=== PATIENT | female | born 1965 | race Caucasian/White ===

== ENCOUNTER → 2017-02-04 | Outpatient (CLI) | payer BC | END | disposition home or self-care (01) | LOC: MAMMO 15:25 | DX: Z12.31 Encounter for screening mammogram for malignant neoplasm of breast (principal) ==

== ENCOUNTER → 2017-02-10 | Outpatient (CLI) | payer BC ==
[~2017-02-10] MED LIST: LORADAMED10 MG PO
[2017-02-10 09:52] LABS: BASO # 0.1 10*3/uL (0.0-0.1); BASO % 0.6 % (0.0-1.0); EOS # 0.4 10*3/uL (0.0-0.4); EOS % 4.9 % (1.0-4.0); HEMATOCRIT 37.3 % (37.0-47.0); HEMOGLOBIN 12.2 g/dl (12.0-16.0); LYMPH # 1.5 10*3/uL (1.3-4.4); LYMPH % 18.2 % (27.0-41.0); MEAN CELL VOLUME 85.4 fl (81.0-99.0); MEAN CORPUSCULAR HGB 27.9 pg (27.0-31.0); MEAN CORPUSCULAR HGB CONC 32.7 g/dl (33.0-37.0); MEAN PLATELET VOLUME 9.5 fl (9.6-12.3); MONO # 0.8 10*3/uL (0.1-1.0); MONO % 9.2 % (3.0-9.0); NEUT # 5.6 10*3/uL (2.3-7.9); NEUT % 66.6 % (47.0-73.0); PLATELET COUNT AUTOMATED 314 10*3/uL (130-400); RED BLOOD COUNT 4.37 10*6/uL (4.10-5.10); RED CELL DISTRI WIDTH 14.2 % (0-14.5); WHITE BLOOD COUNT 8.4 10*3/uL (4.8-10.8)
== END | disposition home or self-care (01) ==
LOC: LAB 09:20
PROVIDERS: Obstetrics & Gynecology
DX: N92.0 Excessive and frequent menstruation with regular cycle (principal)

== ENCOUNTER → 2017-02-17 | Day surgery (SDC) | payer BC ==
[2017-02-10 08:53] VITALS: BP 128/72
[~2017-02-17] VITALS: Ht 165.1 cm; Wt 68.0 kg
--- NOTE | ~2017-02-17 | WRIGHTHP ---
[place], [place] PATIENT HISTORY AND PHYSICAL EXAM NAME: DHAVAL MARTINEZ [facility] #: [id number] UNIT #: [id number] ROOM: DOCTOR: ADDIE DAVILA MD BIRTHDATE: [birth year] DOS: DATE OF SURGERY: 02/17/2017 HISTORY OF PRESENT ILLNESS: This is a 52-year-old white female who was seen on 01/22/2017 for her annual exam. The year before the annual, we had discussed NovaSure as the patient has noted over the past 2+ years that her menses are now lasting 7+ days, 4 of which necessitated 2 pads and a tampon at a time and changed multiple occasions per day. She has had no menopausal symptoms and her menses are still regular. Her Pap was negative in 2015. We reviewed the risks and benefits, indications, potential complications, and alternatives of hysteroscopy, D and C, and NovaSure, understanding was stated and consent was signed. The patient did not want any preoperative evaluation in the office, but did agree to the D and C in conjunction with the NovaSure. PAST MEDICAL HISTORY: Reveals 6 pregnancies, 4 deliveries, 3 of which were vaginal and 1 was by with 2 miscarriages. She is status post tubal ligation. SOCIAL HISTORY: She had been a smoker, but has discontinued smoking 5-10 years ago. She does not drink. ALLERGIES: She has no known allergies. MEDICATIONS: She takes loratadine 1 tablet daily for allergies p.r.n. and Flonase 1 spray each nostril p.r.n. for allergies. FAMILY HISTORY: Reveals her father from heart disease. Paternal grandfather, maternal grandmother, maternal grandfather and paternal grandmother all . She notes that several aunts on her mother's side had had breast cancer. REVIEW OF SYSTEMS: Revealed mammograms have been negative as have Pap smears. PHYSICAL EXAMINATION: GENERAL: Reveals a pleasant white female. She is 5 feet 5 inches, 150 pounds, BMI is 25. She is in no apparent distress. VITAL SIGNS: Her blood pressure is 102/58. Her oxygen saturation is 100%. She notes no history of sleep apnea or symptoms. HEENT: Grossly intact. NECK: Grossly intact. LUNGS: Grossly intact. CARDIAC: Grossly intact. BREASTS: Grossly intact. ABDOMEN: Grossly intact. EXTREMITIES: Grossly intact. NEUROLOGIC: Grossly intact. GENITOURINARY: External genitalia, vagina, and cervix normal. Uterus anteverted, anteflexed, overall normal in size, configuration, nontender, mobile. Adnexa negative. RECTAL: Negative. Stool heme test negative. [place], [place] PATIENT HISTORY AND PHYSICAL EXAM NAME: DHAVAL MARTINEZ UNIT #: [id number] ROOM: DOCTOR: ADDIE DAVILA MD BIRTHDATE: [birth year] ASSESSMENT AND PLAN: The patient with worsening hypermenorrhea, although with regular cycles, who does desire more definitive therapy and to that end on 02/17/2017, the patient will undergo hysteroscopy, dilation and curettage and NovaSure endometrial ablation. ADDIE DAVILA MD CM:HISPHYS:PATIENT HISTORY AND PHYSICAL EXAMINATION [id number] ADDIE DAVILA MD 02/13/17 0535 interface
--- NOTE | ~2017-02-17 | O ---
[place], [place] OPERATIVE NOTE NAME: DHAVAL MARTINEZ UNIT #: [id number] ROOM: DOCTOR: ADDIE OZUNA MD BIRTHDATE: [birth year] DOS: 02/17/2017 PREOPERATIVE DIAGNOSES: Regular cycles but with worsening hypermenorrhea to almost an incapacitating state. POSTOPERATIVE DIAGNOSES: Regular cycles but with worsening hypermenorrhea to almost an incapacitating state. PROCEDURE: Hysteroscopy, D and C and NovaSure ablation. SURGEON: Addie Ozuna MD and Chandrakant Davison DO ANESTHESIA: MAC with 2% Nesacaine and paracervical block, 4 and 7 o'clock, 5 mL respectively. ESTIMATED BLOOD LOSS: Minimal. REPLACEMENTS: IV fluids and Toradol. COMPLICATIONS: There were no complications. CONDITION: The patient's condition to recovery stable. OPERATIVE SUMMARY: The patient was taken to the operating room in supine position. MAC anesthesia, lithotomy position, prepped and draped in routine manner. Straight cath of the bladder was then accomplished. Cervix was grasped with a tenaculum. The uterus sounded to about 9 cm followed by progressive dilatation of the endocervical canal. Hysteroscope was placed and examination of the fundus, the cornual region, the body of the uterus, and lower uterine segment revealed a normal exam and just some minor shaggy endometrial tissue. We performed a thorough curettage and then placed our NovaSure device and after achieving the appropriate depth and width, we proceeded with the NovaSure ablation. We then removed the device and repeated our hysteroscopy revealing excellent global ablation with no other atypicalities appreciated. All instrumentation was removed. The patient was cleaned off, taken out of lithotomy position, awakened and transferred to recovery in satisfactory condition with stable vital signs, good hemostasis, and stable sponge and instrument count. [place], [place] OPERATIVE NOTE NAME: DHAVAL MARTINEZ UNIT #: [id number] ROOM: DOCTOR: ADDIE OZUNA MD BIRTHDATE: [birth year] ADDIE OZUNA MD CM:OPRECORD:OPERATIVE NOTE [id number] ADDIE OZUNA MD 02/17/17 1208 interface
[2017-02-17 09:15] VITALS: BP 110/71
[2017-02-17 11:06] VITALS: BP 108/58
[2017-02-17 11:21] VITALS: BP 112/62
[2017-02-17 11:36] VITALS: BP 142/60
== END | disposition home or self-care (01) ==
LOC: SDC 02-10 08:45
DX: N92.0 Excessive and frequent menstruation with regular cycle (principal); N84.0 Polyp of corpus uteri; Z87.891 Personal history of nicotine dependence; Z79.899 Other long term (current) drug therapy; Z82.49 Family history of ischemic heart disease and other diseases of the circulatory system; Z80.3 Family history of malignant neoplasm of breast

== ENCOUNTER → 2018-05-18 | Outpatient (CLI) | payer BC | END | disposition home or self-care (01) | LOC: US 13:05 | DX: D25.9 Leiomyoma of uterus, unspecified (principal) ==

== ENCOUNTER 2018-07-22 01:10 | Inpatient (IN) | payer BC ==
[~2018-07-22] VITALS: Ht 165.1 cm; Wt 65.6 kg
[2018-07-22] VITALS (9 sets, daily range): BP systolic 109–138; BP diastolic 59–79
--- NOTE | 2018-07-22 17:00 | NUR ---
Time: 1699 A 53 year old FEMALE admitted to under services of TERESSA LIN DO. Pt. arrived via bed from [place]. Chief complaint: S/P HYSTERECTOMY. FREDDY HOLBROOK
--- NOTE | 2018-07-22 17:57 | NUR ---
PATIENT RECEIVED NORCO FOR CONTINUED PAIN IN THE ABDOMEN. STATES THE SCHEDULED TORADOL WAS INEFFECTIVE. RATES ABDOMINAL PAIN 7/10.
--- NOTE | 2018-07-22 17:57 | NUR ---
PATIENT RECEIVED MYLICON FOR GAS PRESSURE IN THE ABDOMEN.
--- NOTE | 2018-07-22 19:35 | NUR ---
KPAD APPLIED TO PATIENT'S ABDOMEN FOR DISCOMFORT. BLANKET LAYERED BETWEEN PATIENT AND KPAD. PATIENT GIVEN INSTRUCTIONS ON USE OF KPAD.
--- NOTE | 2018-07-22 19:57 | NUR ---
CALL DR SALDIVAR ABOUT PATIENT HAVING CONTINUED BREAKTHROUGH PAIN. ORDERED 4MG OF MORPHINE ONE TIME NOW.
--- NOTE | 2018-07-22 22:58 | NUR ---
PATIENT RECEIVED NORCO FOR CONTINUED CONTROL OF PAIN. STATES HER PAIN WAS REDUCED BY MORPHINE GIVEN, AND WE ARE WORKING TO KEEP THE PAIN TOLERABLE. PAIN LEVEL IS AT 4/10 AT THIS TIME IN THE LOWER ABDOMEN. ABDOMINAL DRESSING IS DRY, INTACT, WITH A SMALL STAIN OF WHAT APPEARS TO BE SEROSANGUINEOUS DRAINAGE. MINIMAL BROWN VAGINAL DISCHARGE. CATES IS PATENT FOR VERY CLEAR YELLOW URINE. SCDS IN PLACE, KPAD TO ABDOMEN FOR COMFORT. PATIENT DISPLAYS NO S/S OF DISTRESS. CALM, LYING IN HER BED AT THIS TIME. PATIENT WAS UP TO SIDE OF BED EARLIER TONIGHT. BOWEL SOUNDS ARE HYPOACTIVE. ENCOURAGED TO MOVE AND DEEP BREATHE AND USE INCENTIVE SPIROMETER. PATIENT WAS EDUCATED ABOUT USE OF CALL LIGHT FOR ASSISTANCE, AND ABOUT THE SIDE EFFECTS OF PAIN MEDICATIONS. CALL LIGHT IS WITHIN REACH. PATIENT EXPRESSES NO FURTHER CONCERNS AT THIS TIME.
[2018-07-23] VITALS: BP 135/82
--- NOTE | 2018-07-23 03:57 | NUR ---
PT REQUESTS NORCO FOR LOWER ABDOMINAL PAIN. PRN NORCO GIVEN. WILL MONITOR FOR EFFECTIVENESS. PT RATES PAIN A 5-6/10 WHEN SHE IS MOVING.
--- NOTE | 2018-07-23 04:50 | NUR ---
PRN NORCO EFFECTIVE.
--- NOTE | 2018-07-23 05:23 | NUR ---
DHAVAL MARTINEZ [id number] Please refer to the physician's history and physical for past medical history, comorbid conditions, and allergies. Diagnosis: POSTOPERATIVE STATE Kevin Score: 20,LOW OR NO RISK WOUND DESCRIPTIONS: Patient's dressing is intact to lower abdomen above pubic area. Scant amount of strikethrough drainage noted at time of assessment. Pt stated she will follow up with Dr. Sauceda upon discharge but she stated Dr. Sauceda hasn't given her a follow up date as of yet. Surface the patient is resting on: Isoflex SKIN PREVENTION RECOMMENDATION: 1. Pressure redistribution support surface as appropriate 2. Elevate heels 3. Remove boots/TEDS every shift and reapply 4. Head of bed 30 degrees as tolerated 5. Assess nutrition and hydration 6. Manage moisture 7. Avoid the use of containment devices while in bed 8. Use absorptive products on surfaces limit layers of linens on bed 9. Turn and reposition every 1-2 hours in bed and every 1 hour in chair as tolerated 10. Weight shifts every 15 minutes while up in chair 11. Offloading with pillows or device to keep heels elevated off bed 12. Monitor skin at least every shift 13. Inspect under medical devices twice a day
[2018-07-23 06:58] LABS: BASO % 0.1 % (0.0-1.0); EOS % 0.2 % (1.0-4.0); HEMATOCRIT 34.7 % (37.0-47.0); HEMOGLOBIN 11.2 g/dl (12.0-16.0); LYMPH # 1.5 10*3/uL (1.3-4.4); LYMPH % 14.6 % (27.0-41.0); MEAN CELL VOLUME 87.4 fl (81.0-99.0); MEAN CORPUSCULAR HGB 28.2 pg (27.0-31.0); MEAN CORPUSCULAR HGB CONC 32.3 g/dl (33.0-37.0); MEAN PLATELET VOLUME 9.9 fl (9.6-12.3); MONO # 1.5 10*3/uL (0.1-1.0); MONO % 13.9 % (3.0-9.0); NEUT # 7.4 10*3/uL (2.3-7.9); NEUT % 70.9 % (47.0-73.0); PLATELET COUNT AUTOMATED 271 10*3/uL (130-400); RED BLOOD COUNT 3.97 10*6/uL (4.10-5.10); RED CELL DISTRI WIDTH 14.1 % (0-14.5); WHITE BLOOD COUNT 10.4 10*3/uL (4.8-10.8)
[2018-07-23 08:00] VITALS: BP 100/62
--- NOTE | 2018-07-23 08:20 | NUR ---
UP TO RECLINER WITH MINIMAL ASSIST, DANIEL FOR SURGICAL BELLY PAIN
--- NOTE | 2018-07-23 08:31 | NUR ---
DANIEL FOR ABD SURGICAL PAIN
--- NOTE | 2018-07-23 11:06 | NUR ---
Obstetrician in to talk to patient. Patient states lives at HOME with . There are BASEMENT steps in the home. Physician: EBONIE Pharmacy: [facility] [place] [facility] services: NONE Patient's level of ADLs: INDEPENDENT Patient has working utilities: YES DME: NONE Follow-up physician's appointment after d/c: WILL BE MADE BY HOSPITALIST NURSE DIRECTOR ON DISCHARGE Does patient want to access PORTAL?: NO Discharge plan PT STATES SHE LIVES AT HOME AND IS INDEPENDENT IN CARE. PT STATES HER IS OFF FOR THE WEEK TO HELP HER AT HOME. HE WILL TAKE HER HOME ON DISCHARGE. WILL CONTINUE TO FOLLOW.. ANTONELLA BISHOP
--- NOTE | 2018-07-23 11:37 | NUR ---
TORODOL FOR 4/10 SURGICAL PAIN
--- NOTE | 2018-07-23 12:00 | NUR ---
WALKING IN HALLS WITH MINIMAL ASSIST
--- NOTE | 2018-07-23 13:30 | NUR ---
TORODOL EFFECTIVE FOR SURGICAL PAIN RELIEF
--- NOTE | 2018-07-23 14:55 | NUR ---
PT HAS URINATED SEVERAL TIMES IN THE BATHROOM
--- NOTE | 2018-07-23 14:56 | NUR ---
DRESSING REMOVED BY SURGEON, LEFT OPEN TO AIR
--- NOTE | 2018-07-23 15:10 | NUR ---
NORCO FOR PAIN
[2018-07-23 16:00] VITALS: BP 121/64
--- NOTE | 2018-07-23 17:54 | NUR ---
NORCO HAVE BEEN EFFECTIVE, PT EATING, VOIDING AND AMBULATING WITHOUT DIFFICULITY
--- NOTE | 2018-07-23 18:58 | NUR ---
DANIEL FOR 4/10 ABD PAIN FROM SURGERY
--- NOTE | 2018-07-23 19:00 | NUR ---
UPON BEDSIDE REPORT, PATIENT VISITING WITH FAMILY. NO DISTRESS NOTED. NO VOICED COMPLAINTS
[2018-07-23 20:00] VITALS: BP 115/68
--- NOTE | 2018-07-23 20:08 | NUR ---
24 HR chart check completed.
--- NOTE | 2018-07-23 21:00 | NUR ---
RESTING IN BED WITH NO ACUTE DISTRESS NOTED. RESPIRATIONS EASY. LUNGS DIMINISHED, CLEAR. PULSE OX 97% RA. TRANSVERSE INCISION NOTED TO LOWER ABD/PELVIC AREA WITH STERI-STRIPS INTACT, INCISION WELL APPROXIMATED WITH DRIED BLOOD NOTED. DENIES VAGINAL BLEEDING AT PRESENT. SCDS PRESENT AT BEDSIDE BUT NOT IN USE PER PATIENT REQUEST. CALL LIGHT WITHIN REACH. NO VOICED COMPLAINTS
--- NOTE | 2018-07-23 23:25 | NUR ---
REQUESTED AND RECEIVED NORCO 2 TABS PER PRN ORDER FOR COMPLAINTS OF PAIN RATING A 4 TO INCISION SITE. CALL LIGHT WITHIN REACH. WILL MONITOR FOR EFFECTRIVENESS
[2018-07-24] VITALS: BP 124/66
--- NOTE | 2018-07-24 00:30 | NUR ---
EARLIER MEDS APPEAR EFFECTIVE. SLEEPING. RESPIRATIONS EASY. VSS. CALL LIGHT WITHIN REACH
--- NOTE | 2018-07-24 05:46 | NUR ---
REQUESTED AND RECEIVED NORCO PER PRN ORDER FOR COMPLAINTS OF INCISIONAL PAIN/PRESSURE RATING A 5. CALL LIGHT WITHIN REACH. WILL MONITOR FOR EFFECTIVENESS
--- NOTE | 2018-07-24 06:30 | NUR ---
PATIENT STILL NOT PASSING FLATUS. ENCOURAGED TO AMBULATE HALLWAY. PATIENT WALKING LAPS AROUND HALLWAY
--- NOTE | 2018-07-24 06:30 | NUR ---
DR SALDIVAR HERE TO SEE PATIENT AND DISCUSS PLAN OF CARE
[2018-07-24] MEDS ORDERED: DOK COLACE100 MG PO (06:55)
[2018-07-24] MEDS ORDERED: IBU800 M1 PO (06:55)
[2018-07-24] MEDS ORDERED: HYDROCODONE-AC1 EAC1 PO (06:55)
--- NOTE | 2018-07-24 07:00 | NUR ---
PATIENT AMBULATED 5 LAPS AROUND HALLWAY
[2018-07-24 08:00] VITALS: BP 100/66
--- NOTE | 2018-07-24 12:12 | NUR ---
Discharge instructions reviewed with patient/family. Patient receptive and verbalizes understanding. Follow-up care arranged. Written instructions given to patient/family. PATRICIA BURLESON
== END 2018-07-24 12:12 | disposition home or self-care (01) | DRG 742 ==
LOC: SDC 01:10 → 5E 07:10 → SDC 10:00 → 5E 16:54
PROVIDERS: ADMIT Obstetrics & Gynecology
PROC: 0UT90ZZ Resection of Uterus, Open Approach (ICD-10-PCS; principal; 2018-07-22)
PROC: 0UT20ZZ Resection of Bilateral Ovaries, Open Approach (ICD-10-PCS; principal; 2018-07-22)
PROC: 0UT70ZZ Resection of Bilateral Fallopian Tubes, Open Approach (ICD-10-PCS; principal; 2018-07-22)
PROC: 0UJD4ZZ Inspection of Uterus and Cervix, Percutaneous Endoscopic Approach (ICD-10-PCS; principal; 2018-07-22)
DX: D25.9 Leiomyoma of uterus, unspecified (principal); D62 Acute posthemorrhagic anemia; N93.9 Abnormal uterine and vaginal bleeding, unspecified

== ENCOUNTER → 2019-11-16 | Outpatient (CLI) | payer BC ==
[~2019-11-16] MED LIST changes: +DOK COLACE100 MG PO; +HYDROCODONE-AC1 EAC1 PO; +IBU800 M1 PO
== END | disposition home or self-care (01) ==
LOC: MAMMO 01:00
DX: Z12.31 Encounter for screening mammogram for malignant neoplasm of breast (principal)

== ENCOUNTER → 2020-04-18 | Outpatient (CLI) | payer BC | END | disposition home or self-care (01) | LOC: COVID19 15:58 | PROVIDERS: ATTEND Internal Medicine | DX: U07.1 COVID-19 (principal) ==

== ENCOUNTER → 2020-11-24 | Outpatient (CLI) | payer BC ==
[2020-11-24 09:07] LABS: BASO # 0.1 10*3/uL (0.0-0.1); BASO % 0.8 % (0.0-1.0); EOS # 0.3 10*3/uL (0.0-0.4); EOS % 4.2 % (1.0-4.0); HEMATOCRIT 43.2 % (37.0-47.0); LYMPH # 1.2 10*3/uL (1.3-4.4); LYMPH % 18.8 % (27.0-41.0); MEAN CELL VOLUME 87.6 fl (81.0-99.0); MEAN CORPUSCULAR HGB CONC 31.9 g/dl (33.0-37.0); MEAN PLATELET VOLUME 8.9 fl (9.6-12.3); MONO # 0.7 10*3/uL (0.1-1.0); MONO % 11.3 % (3.0-9.0); NEUT % 64.6 % (47.0-73.0); PLATELET COUNT AUTOMATED 322 10*3/uL (130-400); RED BLOOD COUNT 4.93 10*6/uL (4.10-5.10); RED CELL DISTRI WIDTH 13.7 % (0-14.5); WHITE BLOOD COUNT 6.2 10*3/uL (4.8-10.8)
[2020-11-24 09:39] LABS: ALBUMIN 3.8 gm/dl (3.1-4.5); BUN 14 mg/dl (7-24); CHLORIDE 107 mmol/L (98-107); CHOLESTEROL 274 mg/dL (<200); CREATININE 0.82 mg/dL (0.55-1.02); POTASSIUM 4.2 mmol/L (3.5-5.1); SGOT/AST 14 IU/L (3-35); SGPT/ALT 26 U/L (12-78); SODIUM 137 mmol/L (136-145); TRIGLYCERIDES 85 mg/dl (<150)
[2020-11-24 09:44] LABS: ALKALINE PHOSPHATASE 94 U/L (45-117); FREE T4 0.94 ng/dl (0.76-1.46); LDL CHOLESTEROL 195 mg/dL (9-159)
[2020-11-24 11:20] LABS: VITAMIN D, 25-HYDROXY 45.8 ng/mL (30-100)
== END | disposition home or self-care (01) ==
LOC: LAB 08:53
PROVIDERS: ATTEND Internal Medicine
DX: E03.9 Hypothyroidism, unspecified (principal); J92.9 Pleural plaque without asbestos; D52.9 Folate deficiency anemia, unspecified; D51.9 Vitamin B12 deficiency anemia, unspecified; R70.0 Elevated erythrocyte sedimentation rate; R79.82 Elevated C-reactive protein (CRP); R74.8 Abnormal levels of other serum enzymes; R79.89 Other specified abnormal findings of blood chemistry; R53.81 Other malaise; E55.9 Vitamin D deficiency, unspecified; Z13.0 Encounter for screening for diseases of the blood and blood-forming organs and certain disorders involving the immune mechanism; Z13.1 Encounter for screening for diabetes mellitus; Z13.21 Encounter for screening for nutritional disorder; Z13.220 Encounter for screening for lipoid disorders; Z00.01 Encounter for general adult medical examination with abnormal findings

== ENCOUNTER → 2020-12-11 | Outpatient (CLI) | payer BC | END | disposition home or self-care (01) | LOC: RAD 13:40 → MAMMO 14:30 | PROVIDERS: ATTEND Internal Medicine | DX: Z12.31 Encounter for screening mammogram for malignant neoplasm of breast (principal); N63.11 Unspecified lump in the right breast, upper outer quadrant; M85.88 Other specified disorders of bone density and structure, other site; Z78.0 Asymptomatic menopausal state ==

== ENCOUNTER → 2021-08-13 | Outpatient (CLI) | payer BC ==
[2021-08-13 17:16] LABS: BASO # 0.1 10*3/uL (0.0-0.1); BASO % 0.6 % (0.0-1.0); EOS # 0.4 10*3/uL (0.0-0.4); HEMATOCRIT 41.8 % (37.0-47.0); LYMPH % 21.8 % (27.0-41.0); MEAN CELL VOLUME 85.1 fl (81.0-99.0); MEAN CORPUSCULAR HGB 28.1 pg (27.0-31.0); MEAN PLATELET VOLUME 8.9 fl (9.6-12.3); MONO % 10.2 % (3.0-9.0); NEUT # 5.9 10*3/uL (2.3-7.9); NEUT % 62.9 % (47.0-73.0); PLATELET COUNT AUTOMATED 396 10*3/uL (130-400); RED BLOOD COUNT 4.91 10*6/uL (4.10-5.10); RED CELL DISTRI WIDTH 13.3 % (0-14.5); WHITE BLOOD COUNT 9.3 10*3/uL (4.8-10.8)
[2021-08-13 17:43] LABS: ALKALINE PHOSPHATASE 73 U/L (45-117); BUN 15 mg/dl (7-24); CHLORIDE 104 mmol/L (98-107); CHOLESTEROL 176 mg/dL (<200); CREATININE 0.66 mg/dL (0.55-1.02); LDL CHOLESTEROL 95 mg/dL (9-159); POTASSIUM 3.7 mmol/L (3.5-5.1); SGOT/AST 29 IU/L (3-35); SGPT/ALT 55 U/L (12-78); SODIUM 139 mmol/L (136-145); T3 UPTAKE 35 % (31-39); THYROXINE (T4) TOTAL 9.2 ug/dl (4.8-13.9); TRIGLYCERIDES 144 mg/dl (<150)
[2021-08-13 17:47] LABS: THYROID STIM HORMONE (HS) 0.606 uIU/ml (0.358-4.75)
[2021-08-13 17:58] LABS: VITAMIN D, 25-HYDROXY 23.5 ng/mL (30-100)
== END | disposition home or self-care (01) ==
LOC: US 07-31 16:00 → LAB 16:46
PROVIDERS: ATTEND Internal Medicine
DX: E04.2 Nontoxic multinodular goiter (principal)

== ENCOUNTER → 2022-03-04 | Outpatient (CLI) | payer BC | LOC: MAMMO 07:49 | PROVIDERS: ATTEND Nurse Practitioner Family | DX: Z12.31 Encounter for screening mammogram for malignant neoplasm of breast (principal) ==

== ENCOUNTER → 2024-10-07 | Outpatient (CLI) | payer BC | END | disposition home or self-care (01) | LOC: MAMMO 09-30 07:30 | PROVIDERS: ATTEND Nurse Practitioner Family | DX: Z12.31 Encounter for screening mammogram for malignant neoplasm of breast (principal); R92.323 Mammographic fibroglandular density, bilateral breasts; N64.89 Other specified disorders of breast ==

== ENCOUNTER 2025-03-25 19:07 | Emergency (ER) | payer BC ==
[~2025-03-25] VITALS: Ht 162.6 cm; Wt 59.0 kg
[2025-03-25] MEDS ORDERED: SODIUM CHLORIDE 0.9% 100 ML BAG IV ONE (19:45)
[2025-03-25] MEDS ORDERED: IOHEXOL 350 MG/ML 100 ML VIAL IV ONE ×2 (19:45→20:09)
[2025-03-25] MEDS ORDERED: SODIUM CHLORIDE 0.9% 100 ML IV ONE (20:09)
[2025-03-25] MEDS ORDERED: MELOXICAM15 MG PO (22:27)
== END 2025-03-25 22:38 | disposition home or self-care (01) ==
LOC: ED 19:07
DX: S10.93XA Contusion of unspecified part of neck, initial encounter (principal); R51.9 Headache, unspecified; M54.50 Low back pain, unspecified; Z98.890 Other specified postprocedural states; Z90.710 Acquired absence of both cervix and uterus; Y04.0XXA Assault by unarmed brawl or fight, initial encounter; Y93.89 Activity, other specified; Y92.89 Other specified places as the place of occurrence of the external cause; Y99.8 Other external cause status